=== PATIENT | female | born 1960 | race Caucasian/White ===

== ENCOUNTER → 2019-06-13 20:39 | Emergency (ER) | payer SELFPAY ==
--- NOTE | 2019-06-13 20:39 | NUR ---
PT LEFT W/O BEING SEEN AND TRIAGE .PT WANTS TO GO BEYER.
== END | disposition left against medical advice (07) ==
LOC: SED 20:39
DX: R55 Syncope and collapse (principal); Z53.21 Procedure and treatment not carried out due to patient leaving prior to being seen by health care provider